=== PATIENT | male | born 2000 | race Two or more races ===

== ENCOUNTER 2023-02-12 17:43 | Emergency (ER) | payer SELFPAY ==
[~2023-02-12] VITALS: Ht 175.3 cm; Wt 74.9 kg
[2023-02-12 18:00] VITALS: BP 141/67
== END 2023-02-12 21:59 | disposition home or self-care (01) ==
LOC: ER 17:43
DX: S01.511A Laceration without foreign body of lip, initial encounter (principal); Z88.0 Allergy status to penicillin; W18.39XA Other fall on same level, initial encounter; Y93.89 Activity, other specified; Y92.59 Other trade areas as the place of occurrence of the external cause; Y99.8 Other external cause status
CPT/HCPCS: 12011